=== PATIENT | male | born 1990 | race Caucasian/White ===

== ENCOUNTER 2018-07-16 13:56 | Emergency (ER) | payer SELFPAY ==
[~2018-07-16] VITALS: Ht 177.8 cm; Wt 86.2 kg
--- NOTE | 2018-07-16 14:13 | NUR ---
Per Pt we can call his father(Joseph Corral) at [phone].
--- NOTE | 2018-07-16 14:24 | NUR ---
Pt states being suecidal but has no plans. Suecidal precautions implanted.
[2018-07-16] MEDS ORDERED: HALOPERIDOL LACTATE 5 MG/1 ML VIAL ONE (15:02)
[2018-07-16] MEDS ORDERED: diphenhydrAMINE 50 MG/1 ML VIAL ONE (15:02)
[2018-07-16] MEDS ORDERED: LORAZEPAM 2 MG/1 ML VIAL ONE (15:02)
[2018-07-16] MEDS ORDERED: diphenhydrAMINE 50 MG/1 ML VIAL IM ONE (15:15)
[2018-07-16] MEDS ORDERED: LORAZEPAM 2 MG/1 ML VIAL IM ONE (15:15)
[2018-07-16] MEDS ORDERED: HALOPERIDOL LACTATE 5 MG/1 ML VIAL IM ONE (15:15)
[2018-07-16 16:03] LABS: BASOPHILS # (AUTO) 0.1 K/uL (0.0-8.0); BASOPHILS % (AUTO) 0.8 % (0.0-2.0); EOSINOPHILS # (AUTO) 0.1 K/uL (0.0-0.7); EOSINOPHILS % (AUTO) 0.9 % (0.0-7.0); HEMATOCRIT 39.7 % (36.7-47.1); HEMOGLOBIN 13.6 g/dL (12.5-16.3); LYMPHOCYTES # (AUTO) 1.9 K/uL (20.0-40.0); LYMPHOCYTES % (AUTO) 12.8 % (20.5-51.5); MEAN CORPUSCULAR HEMOGLOBIN 31.7 uug (23.8-33.4); MEAN CORPUSCULAR HGB CONC 34 g/dL (32.5-36.3); MEAN CORPUSCULAR VOLUME 92.3 fL (73.0-96.2); MONOCYTES % (AUTO) 7.1 % (0.0-11.0); NEUTROPHILS # (AUTO) 11.3 K/uL (1.8-8.9); NEUTROPHILS % (AUTO) 78.4 % (38.5-71.5); PLATELET COUNT (AUTO) 253 K/uL (152-348); WHITE BLOOD COUNT (AUTO) 14.4 K/uL (3.6-10.2)
[2018-07-16 16:05] LABS: CARBON DIOXIDE 24 mmol/L (21-32); CHLORIDE 104 mmol/L (98-107); CREATININE 1.3 mg/dL (0.6-1.3); GLUCOSE 126 mg/dL (74-106); POTASSIUM 2.9 mmol/L (3.5-5.1); UREA NITROGEN, BLOOD 17 mg/dL (7-18)
[2018-07-16 16:06] LABS: ETHANOL < 3 MG/DL (0-0)
[2018-07-16 16:11] LABS: ALANINE AMINOTRANSFERASE 315 U/L (16-63); ALKALINE PHOSPHATASE 69 U/L (50-136); ASPARTATE AMINOTRANSFERASE 190 U/L (15-37); BILIRUBIN,DIRECT 0.4 mg/dL (0.0-0.2); BILIRUBIN,TOTAL 1.3 mg/dL (0.2-1.0); TOTAL PROTEIN, SERUM 7.8 g/dL (6.4-8.2)
[2018-07-16 16:12] LABS: ACETAMINOPHEN < 2.0 ug/mL (10-30)
[2018-07-16] MEDS ORDERED: QUETIAPINE FUMARATE 200 MG TABLET ONE (16:12)
[2018-07-16] MEDS ORDERED: QUETIAPINE FUMARATE 100 MG TABLET ONE (16:13)
[2018-07-16] MEDS ORDERED: QUETIAPINE FUMARATE 25 MG TABLET PO ONE (16:15)
--- NOTE | 2018-07-16 16:35 | NUR ---
Patient is resting comfortably in bed with eyes closed, NAD noted.
[2018-07-16] MEDS ORDERED: POTASSIUM CHLORIDE 20 MEQ TAB.PRT.SR PO ONE (17:00)
[2018-07-16] MEDS ORDERED: POTASSIUM CHLORIDE 20 MEQ TAB.PRT.SR ONE (17:14)
--- NOTE | 2018-07-16 18:40 | NUR ---
Patient is resting comfortably in bed with eyes closed, NAD noted. public affairs officer at the bedside for safety.
--- NOTE | 2018-07-16 20:59 | NUR ---
Patient is resting comfortably in bed with eyes closed
--- NOTE | 2018-07-16 22:34 | NUR ---
Patient is resting comfortably in bed with eyes closed
--- NOTE | 2018-07-16 23:09 | NUR ---
Call placed to [facility] Walter, for PET evaluation.
--- NOTE | 2018-07-17 00:24 | NUR ---
SE[facility] Walter, at bedside for evaluation.
--- NOTE | 2018-07-17 01:30 | NUR ---
Patient is medically cleared, evaluated by HOME SUPERVISOR, does not meet criteria for 5150 hold. Patient can be discharged but unable to call or contact centre team leader of sober living facility due to wrong phone number. Patient is resting in bed with eyes closed. ERMD states ok to remain in bed until morning when a plan for discharge can be completed safely.
--- NOTE | 2018-07-17 03:45 | NUR ---
Patient is resting comfortably in bed with eyes closed
--- NOTE | 2018-07-17 04:38 | NUR ---
Patient is resting comfortably in bed with eyes closed
--- NOTE | 2018-07-17 06:43 | NUR ---
Patient discharged to home in stable conditon. Written and verbal after care instructions given. Patient verbalizes understanding of instructions.
== END 2018-07-17 06:44 | disposition home or self-care (01) ==
LOC: ER 13:56
DX: F15.10 Other stimulant abuse, uncomplicated (principal); F29 Unspecified psychosis not due to a substance or known physiological condition; E87.6 Hypokalemia; F20.9 Schizophrenia, unspecified; Z59.0 Homelessness
CPT/HCPCS: 36415; 85025; 93005; A4663; G0480; G0480-TC; J1200; J1630; J2060

== ENCOUNTER 2020-05-18 22:05 | Emergency (ER) | payer OTHER ==
[~2020-05-18] VITALS: Ht 172.7 cm; Wt 86.2 kg
--- NOTE | 2020-05-18 22:15 | NUR ---
Dr. Torres at bedside for MSE
[2020-05-18] MEDS ORDERED: ONDANSETRON ODT 4 MG TAB.RAPDIS SL ONE (22:30)
[2020-05-18] MEDS ORDERED: HYDROMORPHONE 1 MG/1 ML DISP.SYRIN IM ONE (22:30)
[2020-05-18] MEDS ORDERED: ONDANSETRON ODT 4 MG TAB.RAPDIS ONE (22:30)
[2020-05-18] MEDS ORDERED: HYDROMORPHONE 1 MG/1 ML DISP.SYRIN ONE (22:31)
--- NOTE | 2020-05-18 22:57 | NUR ---
pt out of er for ct
--- NOTE | 2020-05-18 23:14 | NUR ---
pt back from CT
[2020-05-18] MEDS ORDERED: HYDROMORPHONE 2 MG/1 ML DISP.SYRIN ONE (23:58)
[2020-05-19] MEDS ORDERED: HYDROMORPHONE 1 MG/1 ML DISP.SYRIN IM ONE
--- NOTE | 2020-05-19 00:04 | NUR ---
Patient given written and verbal discharge instructions. Patient verbalizes understanding of instructions. Patient is ambulatory with steady gait. Refuses offer of [facility] placement. Patient given list of available shelters in surrounding area. aa/[id number]. ambulatory with steady gait no s/s of distress pt's friend will drive pt home all belongings with pt
[2020-05-19 00:07] VITALS: BP 142/85
== END 2020-05-19 00:04 | disposition home or self-care (01) ==
LOC: ER 22:10
DX: S63.094A Other dislocation of right wrist and hand, initial encounter (principal); S63.8X1A Sprain of other part of right wrist and hand, initial encounter; W22.8XXA Striking against or struck by other objects, initial encounter; Y92.89 Other specified places as the place of occurrence of the external cause; Y99.8 Other external cause status; Z59.0 Homelessness; F17.200 Nicotine dependence, unspecified, uncomplicated
CPT/HCPCS: 29125; 73130; 73200; 96372 ×2; 99284; J1170 ×2; A4663; Q0162

== ENCOUNTER 2020-06-05 11:35 | Emergency (ER) | payer OTHER ==
[~2020-06-05] VITALS: Ht 167.6 cm; Wt 72.6 kg
--- NOTE | 2020-06-05 11:56 | NUR ---
[email or web address], medical screening exam in progress
[2020-06-05] MEDS ORDERED: LORAZEPAM 1 MG TABLET ONE (12:09)
[2020-06-05] MEDS ORDERED: GABAPENTIN 400 MG CAPSULE ONE (12:10)
[2020-06-05] MEDS ORDERED: GABAPENTIN 400 MG CAPSULE PO ONE (12:15)
[2020-06-05] MEDS ORDERED: LORAZEPAM 0.5 MG TABLET PO ONE (12:15)
--- NOTE | 2020-06-05 12:16 | NUR ---
Patient was given written and verbal discharge instructions. Patient verbalizes understanding & compliance of instructions. Patient is ambulatory with steady gait. Patient refuses offer of penitentiary placement. Patient was given a list of available shelters in surrounding area. Patient said that maybe he will go to [facility]. Patient does not want to go back to sober living home.
--- NOTE | 2020-06-05 12:38 | NUR ---
Patient came back to ER & wants to use our phone. Patient ask something for his "feet pain", notified.
[2020-06-05] MEDS ORDERED: ACETAMINOPHEN ES 500 MG TABLET ONE (12:53)
[2020-06-05] MEDS ORDERED: IBUPROFEN 800 MG TABLET ONE (12:53)
--- NOTE | 2020-06-05 12:53 | NUR ---
Patient left ER in stable condition after a pair of socks was provided for his feet pain. Patient also has a good pair of working slippers on.
[2020-06-05] MEDS ORDERED: IBUPROFEN 800 MG TABLET PO ONE (13:00)
[2020-06-05] MEDS ORDERED: ACETAMINOPHEN ES 500 MG TABLET PO ONE (13:00)
== END 2020-06-05 12:53 | disposition home or self-care (01) ==
LOC: ER 11:37
DX: F13.10 Sedative, hypnotic or anxiolytic abuse, uncomplicated (principal); S90.822A Blister (nonthermal), left foot, initial encounter; S90.821A Blister (nonthermal), right foot, initial encounter; X58.XXXA Exposure to other specified factors, initial encounter; Y92.89 Other specified places as the place of occurrence of the external cause; F11.10 Opioid abuse, uncomplicated; Z59.0 Homelessness
CPT/HCPCS: A4663; A9150